=== PATIENT | female | born 1990 | race African-American/Black ===

== ENCOUNTER 2023-10-23 06:27 | Emergency (ER) | payer BC ==
[2023-10-23] MEDS ORDERED: Acetaminophen/HYDROcodone 108-2.5 MG/5 ML Soln 15 ML UD Cup PO ONE (07:04)
== END 2023-10-23 08:14 | disposition home or self-care (01) ==
LOC: JD.ED 06:27
DX: J02.9 Acute pharyngitis, unspecified (principal); F17.210 Nicotine dependence, cigarettes, uncomplicated; J45.909 Unspecified asthma, uncomplicated; Z79.899 Other long term (current) drug therapy; Z86.16 Personal history of COVID-19
CPT/HCPCS: 87651; 99283; A9270